=== PATIENT | male | born 1945 | race Caucasian/White ===

== ENCOUNTER 2022-07-24 13:21 | Emergency (ER) | payer BC, MEDICARE ==
[~2022-07-24] VITALS: Ht 175.3 cm; Wt 95.3 kg
[~2022-07-24 13:21] MED LIST: UNK MEDS
--- NOTE | 2022-07-24 14:53 | NUR ---
DR MUNOZ W/ PT
[2022-07-24] MEDS ORDERED: IBUP-1957 PO (15:28)
--- NOTE | 2022-07-24 17:31 | NUR ---
Patient discharged to home in stable condition. Written and verbal after care instructions given. Patient verbalizes understanding of instruction.
[2022-07-24 17:32] VITALS: BP 120/80
== END 2022-07-24 17:32 | disposition home or self-care (01) ==
LOC: ER 13:40
DX: M25.561 Pain in right knee (principal); M25.461 Effusion, right knee; R51.9 Headache, unspecified; I10 Essential (primary) hypertension; E11.9 Type 2 diabetes mellitus without complications; E78.00 Pure hypercholesterolemia, unspecified; Z90.89 Acquired absence of other organs; Z79.84 Long term (current) use of oral hypoglycemic drugs; W01.0XXA Fall on same level from slipping, tripping and stumbling without subsequent striking against object, initial encounter; Y93.89 Activity, other specified; Y92.89 Other specified places as the place of occurrence of the external cause; Y99.8 Other external cause status
CPT/HCPCS: 70450-TC; 72125-TC; 73502; 73564-TC

== ENCOUNTER 2022-07-30 10:33 | Inpatient (IN) | payer BC ==
[~2022-07-30] VITALS: Ht 170.2 cm; Wt 91.6 kg
[~2022-07-30 10:33] MED LIST changes: +IBUP-1957 PO
--- NOTE | 2022-07-30 10:53 | NUR ---
dr kennedy at bedside for eval.
[2022-07-30] MEDS ORDERED: LOSA25TA27 PO (11:22)
[2022-07-30] MEDS ORDERED: APIX5TAB PO (11:22)
[2022-07-30] MEDS ORDERED: FLUT1BLS6 INH (11:22)
[2022-07-30] MEDS ORDERED: EPLE25TA10 PO (11:22)
[2022-07-30] MEDS ORDERED: CARV3.122 PO (11:22)
[2022-07-30] MEDS ORDERED: METF-442 PO (11:22)
[2022-07-30] MEDS ORDERED: POTA10TA11 PO (11:22)
--- NOTE | 2022-07-30 12:00 | NUR ---
confectionery laboratory manager at bedside for blood draw.
[2022-07-30 12:07] LABS: BASOPHILS % (AUTO) 0.5 % (0.0-2.0); EOSINOPHILS % (AUTO) 0.9 % (0.0-6.0); HEMATOCRIT 30 % (39-51); HEMOGLOBIN 9.9 g/dL (13.5-17.5); LYMPHOCYTES # (AUTO) 1.2 K/uL (0.8-4.8); LYMPHOCYTES % (AUTO) 17.8 % (20.0-44.0); MEAN CORPUSCULAR HGB CONC 33 g/dl (31.0-36.0); MEAN CORPUSCULAR VOLUME 105 fL (80-96); MONOCYTES # (AUTO) 0.9 K/uL (0.1-1.30); MONOCYTES % (AUTO) 12.8 % (2.0-12.0); NEUTROPHILS # (AUTO) 4.7 K/uL (1.8-8.9); PLATELET COUNT (AUTO) 240 K/uL (150-450); RED BLOOD CELL COUNT(AUTO) 2.82 MIL/uL (4.5-6.0)
[2022-07-30 12:34] LABS: CALCIUM, SERUM 8.6 mg/dL (8.5-10.1); POTASSIUM 3.4 mmol/L (3.5-5.1)
--- NOTE | 2022-07-30 14:03 | NUR ---
[facility] CALLED COMMISSIONS COORDINATOR PAGED.
[2022-07-30] MEDS ORDERED: HYDROCODONE/APAP 5/325MG TABLET PO PRN (14:30)
[2022-07-30] MEDS ORDERED: ACETAMINOPHEN 325 MG TABLET PO PRN (14:30)
[2022-07-30] MEDS ORDERED: MAGNESIUM HYDROXIDE 30 ML UDC PO PRN (14:30)
[2022-07-30] MEDS ORDERED: TEMAZEPAM 15 MG CAPSULE PO PRN (14:30)
[2022-07-30] MEDS ORDERED: MAG HYDROX/AL HYDROX/SIMETH 30 ML UDC PO PRN (14:30)
[2022-07-30] MEDS ORDERED: Z GUARD REMEDY 4 OZ OINT TP PRN (14:30)
[2022-07-30] MEDS ORDERED: ONDANSETRON HCL/PF 4 MG/2 ML VIAL IVP PRN (14:30)
--- NOTE | 2022-07-30 16:34 | NUR ---
report given to sanju holcomb. patient awaiting transfer to floor.
--- NOTE | 2022-07-30 16:45 | NUR ---
CIGARETTE AND FILTER CHIEF INSPECTOR NOTE ADMIT 77 YEARS OLD MALE ADMIT AT ROOM 104 ON MED SURG MONITORING,ADMITTING DIAGNOSIS IS ACUTE WEAKNESS AND RIGHT KNEE PAIN,ALERT ORIENTED X4 VERBALLY RESPONSIVE ON ROOM AIR O2:100% SAFETY MEASURE IMPLEMENT BED IN LOW POSITION AND LOCKED,CALL LIGHT WITHIN REACH,HEAD OF THE BED ELEVATED CONTINUE TO MONITOR.
[2022-07-30 17:07] VITALS: BP 140/70
[2022-07-30] MEDS: CARVEDILOL 3.125 MG TABLET PO SCH (17:23)
[2022-07-30] MEDS: LOSARTAN POTASSIUM 25 MG TABLET PO SCH (17:23)
[2022-07-30] MEDS: APIXABAN 5 MG TABLET PO SCH (17:24)
--- NOTE | 2022-07-30 19:06 | NUR ---
RN NOTE PATIENT REMAINS ALERT ORIENTED X4 VERBALLY RESPONSIVE ON ROOM AIR,WILL ENDORSE NEXT COMING SHIFT FOR CONTINUATION OF CARE.
--- NOTE | 2022-07-30 20:03 | NUR ---
MS RN OPENING NOTES: RECEIVED PATIENT AWAKE IN BED, BED IN LOW POSITION CALL LIGHTS WITHIN REACH, NO COMPLAIN OF PAIN AND DISCOMFORT AT THIS TIME, ON ROOM AIR SATURATING WELL, PATIENT IS A/OX 4 ABLE TO MAKE NEEDS KNOWN, ON BED REST, IV LINE AT RAC# 20SL, PATIENT KEPT CLEAN AND DRY ALL NEEDS MET WILL CONTINUE TO MONITOR.
[2022-07-30 22:22] VITALS: BP 121/75
[2022-07-31 04:00] VITALS: BP 142/55
[2022-07-31 06:11] LABS: HEMATOCRIT 28 % (39-51); HEMOGLOBIN 9.7 g/dL (13.5-17.5); MEAN CORPUSCULAR HGB CONC 34 g/dl (31.0-36.0); MEAN CORPUSCULAR VOLUME 105 fL (80-96); RED BLOOD CELL COUNT(AUTO) 2.69 MIL/uL (4.5-6.0); WHITE BLOOD COUNT (AUTO) 7.3 K/uL (4.3-11.0)
[2022-07-31 06:12] LABS: BASOPHILS % (AUTO) 0.5 % (0.0-2.0); EOSINOPHILS % (AUTO) 1.1 % (0.0-6.0); LYMPHOCYTES # (AUTO) 1.8 K/uL (0.8-4.8); LYMPHOCYTES % (AUTO) 24.1 % (20.0-44.0); MONOCYTES % (AUTO) 13.4 % (2.0-12.0); NEUTROPHILS # (AUTO) 4.4 K/uL (1.8-8.9); NEUTROPHILS % (AUTO) 60.9 % (43.0-81.0); PLATELET COUNT (AUTO) 253 K/uL (150-450)
--- NOTE | 2022-07-31 06:29 | NUR ---
MS RN CLOSING NOTES: PATIENT SLEEP IN BED COMFORTABLY, AROUSABLE TO VERBAL STIMULI, BED IN LOW POSITION CALL LIGHTS WITHIN REACH, NO COMPLAIN OF PAIN AND DISCOMFORT AT THIS TIME, ON ROOM AIR SATURATING WELL, NO SOB WAS OBSERVED, PATIENT KEPT CLEAN AND DRY ALL NEEDS MET ENDORSE TO INCOMING SHIFT.
[2022-07-31 06:32] LABS: CALCIUM, SERUM 8.6 mg/dL (8.5-10.1); MAGNESIUM 2.1 mg/dL (1.8-2.4); PHOSPHORUS 2.9 mg/dL (2.5-4.9); POTASSIUM 3.7 mmol/L (3.5-5.1)
[2022-07-31 06:34] LABS: THYROID STIMULATING HORMONE 2.578 uIU/mL (0.358-3.74)
--- NOTE | 2022-07-31 07:30 | NUR ---
MS RN OPENING NOTES RECEIVED PATIENT ON BED AWAKE AND A/O X4. ON ROOM AIR TOLERATING WELL. NO SOB NOTED. NOT IN DISTRESS. WITH COMPLAINTS OF PAIN AT THE RIGHT KNEE AT THE SCALE OF 4/10. COMFORT MEASURES PROVIDED. WITH IV ACCESS AT THE RIGHT AC G20 SALINE LOCKED, PATENT AND INTACT. SAFETY MEASURES IN PLACED. CALL LIGHT WITHIN REACH. BED ON LOWEST LOCKED POSITION, SIDE RAILS UP X2. WILL CONTINUE TO MONITOR.
[2022-07-31] MEDS: CARVEDILOL 3.125 MG TABLET PO SCH ×2 (08:23→17:02)
[2022-07-31] MEDS: PANTOPRAZOLE 40 MG TABLET.DR PO SCH (08:23)
[2022-07-31] MEDS: POTASSIUM CHLORIDE 10 MEQ TABLET.SA PO SCH (08:23)
[2022-07-31] MEDS: METFORMIN 500 MG TABLET PO SCH ×2 (08:23→17:00)
[2022-07-31] MEDS: LOSARTAN POTASSIUM 25 MG TABLET PO SCH ×2 (08:23→17:01)
[2022-07-31] MEDS: APIXABAN 5 MG TABLET PO SCH ×2 (08:24→17:01)
[2022-07-31] MEDS: FLUTICASONE/VILANTEROL 1 EACH BLST.W.DEV IH SCH (08:25)
[2022-07-31] MEDS ORDERED: EPLERENONE 25 MG PO SCH (09:00)
[2022-07-31 12:00] VITALS: BP 140/75
--- NOTE | 2022-07-31 19:20 | NUR ---
noc rn note received patient in bed with eyes closed, easy to arouse. patient is [place] on both ears. no s/s of apparent distress in room air. pain tolerable at this time per patient. no IV fluids running at this time and access on rt. AC #20G. call light within reach, patient re-oriented and encouraged with the use of call light. safety in place, bed in lowest, locked position, siderails ups X2, and bed alarm on. will continue with the plan of care for patient.
--- NOTE | 2022-07-31 19:30 | NUR ---
MS RN CLOSING NOTES PATIENT ON BED RESTING AND A/O X4. ON ROOM AIR TOLERATING WELL. NO SOB NOTED. NOT IN DISTRESS. WITH COMPLAINTS OF PAIN AT THE RIGHT KNEE AT THE SCALE OF 4/10. COMFORT MEASURES PROVIDED. WITH IV ACCESS AT THE RIGHT AC G20 SALINE LOCKED, PATENT AND INTACT. DUE MEDS GIVEN. SAFETY MEASURES IN PLACED. CALL LIGHT WITHIN REACH. BED ON LOWEST LOCKED POSITION, SIDE RAILS UP X2. WILL ENDORSE TO NEXT SHIFT FOR LORI.
[2022-07-31 20:00] VITALS: BP 130/70
--- NOTE | 2022-07-31 20:13 | NUR ---
marti carrion rec Addendum: 07/31/22 at 2014 by LINA MCLEOD RN disregard
--- NOTE | 2022-08-01 00:30 | NUR ---
noc rn note patient noted rubbing rt knee and with facial grimacing, asked if he is in pain c/o 5/10 pain. given NOrco 5 as ordered PRN. will re-assess.
--- NOTE | 2022-08-01 01:25 | NUR ---
noc rn note not even an hour that norco was given, patient complaining that the medication made his pain worst and now asking for codeine. when I said that I'm going to have to report to the Doctor so they can order it inpatient, patient said "Don't tell the Doctor" and asking if someone else could put in the order, exclaiming "Jose! can't anyone else just put in the order!". on Further assessment, asked patient if he usually takes codeine at home. per patient and to quote "My takes some for her back" "The Doctor said I could take some for my Right knee". when asked how many mg the codeine he takes at home that his takes he said, "I don't know" "IT's usually the smal tablet". and per patient "Only one". reported incident to charge nurse.
--- NOTE | 2022-08-01 01:30 | NUR ---
noc nr note- pain re-assessment patient apologized at this time saying the pain is relieved.
[2022-08-01 04:00] VITALS: BP 132/62
--- NOTE | 2022-08-01 07:19 | NUR ---
noc rn closing note patient in bed asleep, patient took off his gown at this time no s/s of apparent distress in room air. pain managed with medication and heating pack. all needs attended. call light within reach. safety in place. Endorsed to SYL MATTSON for continuity of patient care.
[2022-08-01 08:00] VITALS: BP 142/63
[2022-08-01] MEDS: PANTOPRAZOLE 40 MG TABLET.DR PO SCH (08:03)
[2022-08-01] MEDS: METFORMIN 500 MG TABLET PO SCH ×2 (08:56→17:28)
[2022-08-01] MEDS: POTASSIUM CHLORIDE 10 MEQ TABLET.SA PO SCH (08:57)
[2022-08-01] MEDS: APIXABAN 5 MG TABLET PO SCH ×2 (08:59→17:29)
[2022-08-01] MEDS: CARVEDILOL 3.125 MG TABLET PO SCH ×2 (09:00→17:00)
[2022-08-01] MEDS: FLUTICASONE/VILANTEROL 1 EACH BLST.W.DEV IH SCH (09:00)
[2022-08-01] MEDS: LOSARTAN POTASSIUM 25 MG TABLET PO SCH ×2 (09:01→17:28)
[2022-08-01] MEDS: HYDROCODONE/APAP 10/325MG TABLET PO PRN ×2 (10:45→18:21)
[2022-08-01 16:00] VITALS: BP 122/60
--- NOTE | 2022-08-01 19:20 | NUR ---
pt is alert, oriented x 4, hard of hearing, he is take off gawn at all times and yelling, was not cooperative, anxious, he want turn of light, and closed the door, he was yelling when touch his any place of the body, he did not have dinner and he took pain medication 2 time today, took off gawn 3 times, given all medication, hold carvedirol 3.125mg d/t pulse was 58, and all v/s was ok no fever, call light within reach, lowest placement of bed, 3 side rails up, wheels locked, instructed fall precaution
--- NOTE | 2022-08-01 19:40 | NUR ---
MS RN OPENING NOTE RECEIVED PATIENT SLEEPING IN BED. PT A/O X4, ABLE TO VERBALIZE NEEDS. PT ON ROOM AIR, TOLERATING RA WELL. NO SOB NOTED. NO RESPIRATORY DISTRESS NOTED. NO COMPLAINTS OF PAIN AT THIS TIME. IV ACCESS TO RIGHT AC G20 SALINE LOCKED, IV PATENT AND INTACT. SAFETY MEASURES IN PLACED. CALL LIGHT WITHIN REACH. BED IN LOWEST LOCKED POSITION, SIDE RAILS UP X2. WILL CONTINUE TO MONITOR PT.
[2022-08-01 20:00] VITALS: BP 136/51
--- NOTE | 2022-08-01 22:10 | NUR ---
MS RN NOTE PT PULLED OUT HIS IV ACCESS. OFFERED PT TO START NEW IV. PT DECLINED. PT STATES THAT HE HAS HAD THE IV ACCESS FOR A FEW DAYS, AND IT HAS NEVER BEEN USED. SO HE REFUSES TO GET A NEW IV. CHARGE NURSE, AND AWARE.
--- NOTE | 2022-08-01 22:36 | NUR ---
MS RN NOTE PT IS UNABLE TO SLEEP. PT IS ADMINISTERED RESTORIL FOR INSOMNIA.
[2022-08-02 04:00] VITALS: BP 138/70
--- NOTE | 2022-08-02 06:55 | NUR ---
MS RN CLOSING NOTE LEFT PATIENT SLEEPING IN BED. PT A/O X4. ON ROOM AIR TOLERATING WELL. NO SOB NOTED. NOT IN DISTRESS. NO C/O PAIN AT THIS TIME. IV ACCESS TO RIGHT AC G20 SALINE LOCKED, PATENT AND INTACT. PT REFUSES TO BE CHANGED, AND FOR LINEN TO BE CHANGED ALSO. SAFETY MEASURES IN PLACE. CALL LIGHT WITHIN REACH. BED ON LOWEST LOCKED POSITION, SIDE RAILS UP X2. WILL ENDORSE TO NEXT SHIFT FOR LORI.
--- NOTE | 2022-08-02 07:26 | NUR ---
MS RN O NOTE RECEIVED PATIENT SLEEPING IN BED. PT A/O X4, ABLE TO VERBALIZE NEEDS. PT ON ROOM AIR, TOLERATING RA WELL. NO SOB NOTED. NO RESPIRATORY DISTRESS NOTED. NO COMPLAINTS OF PAIN AT THIS TIME.NO IV ACCESS . SAFETY MEASURES IN PLACED. CALL LIGHT WITHIN REACH. BED IN LOWEST LOCKED POSITION, SIDE RAILS UP X2. WILL CONTINUE TO MONITOR PT.
[2022-08-02] MEDS: LOSARTAN POTASSIUM 25 MG TABLET PO SCH ×2 (08:47→16:17)
[2022-08-02] MEDS: PANTOPRAZOLE 40 MG TABLET.DR PO SCH (08:47)
[2022-08-02] MEDS: METFORMIN 500 MG TABLET PO SCH ×2 (08:48→16:18)
[2022-08-02] MEDS: POTASSIUM CHLORIDE 10 MEQ TABLET.SA PO SCH (08:48)
[2022-08-02] MEDS: CARVEDILOL 3.125 MG TABLET PO SCH ×2 (08:48→16:17)
[2022-08-02] MEDS: APIXABAN 5 MG TABLET PO SCH ×2 (08:49→16:17)
[2022-08-02] MEDS: FLUTICASONE/VILANTEROL 1 EACH BLST.W.DEV IH SCH (08:50)
[2022-08-02 09:03] VITALS: BP 122/57
--- NOTE | 2022-08-02 10:07 | NUR ---
SPECIALIZED DEVELOPER NOTE FED PATIENT, KEEP CLEAN DRY , STRANGELY REFUSED TO INSERT IV HL, WILL LF\U
--- NOTE | 2022-08-02 11:54 | NUR ---
RN NOTE SEEN BY RENETTA AWARE THAT PATIENT REFUSED HL INSERTION
--- NOTE | 2022-08-02 13:10 | NUR ---
CREDENTIALING COORDINATOR NOTE SEEN BY DR HAMPTON ORTHOPEDIC NO NEW ORDER GIVEN AT THIS TIME
--- NOTE | 2022-08-02 15:20 | NUR ---
ms rn ote rounds made all needs attended, resting comfortably in bed ,no sob noted at this time
[2022-08-02 16:00] VITALS: BP 115/61
--- NOTE | 2022-08-02 18:37 | NUR ---
MS RN NO NOTE PATIENT SLEEPING IN BED. PT A/O X4, ABLE TO VERBALIZE NEEDS. PT ON ROOM AIR, TOLERATING RA WELL. NO SOB NOTED. NO RESPIRATORY DISTRESS NOTED. NO COMPLAINTS OF PAIN AT THIS TIME.NO IV ACCESS . SAFETY MEASURES IN PLACED. CALL LIGHT WITHIN REACH. BED IN LOWEST LOCKED POSITION, SIDE RAILS UP X2. WILL CONTINUE TO MONITOR PT.
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
[2022-08-02 20:00] VITALS: BP 125/51
[2022-08-03 04:00] VITALS: BP 139/73
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
--- NOTE | 2022-08-03 07:10 | NUR ---
ASSISTANT PROFESSOR OF BIOLOGY OPENING NOTES: RECEIVED PATIENT IN BED, AWAKE, ALERT, ORIENTED X 4. PATIENT IS HARD OF HEARING. NO RESPIRATORY DISTRESS NOTED, ON RA WITH OXYGEN SATURATION OF 97%. PATIENT HAS NO C/O PAIN OR DISCOMFORT AT THIS TIME BUT C/O BEING COLD, ADJUSTED PATIENT'S ROOM THERMOSTAT FOR PATIENT'S COMFORT. PATIENT HAS NO IV ACCESS AT THIS TIME AND STILL REFUSED TO HAVE IT ON AND SAID THAT HE'S GOING HOME ANYWAY. INFORMED PATIENT THAT HE DOES NOT HAVE A DISCHARGE ORDER YET. ALL SAFETY MEASURES IN PLACE. CALL LIGHT WITHIN REACH. BED LOCKED AND IN LOWEST POSITION WITH BED ALARM ON. SR UP X 2. WILL CONTINUE TO MONITOR PATIENT THROUGHOUT SHIFT.
[2022-08-03] MEDS: PANTOPRAZOLE 40 MG TABLET.DR PO SCH (07:33)
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
--- NOTE | 2022-08-03 08:16 | NUR ---
DR WELLINGTON NOTIFIED WITH NO FURTHER ORDERS AT THIS TIME BUT JUST TO KEEP PATIENT COMFORTABLE AND TO FOLLOW PREVIOUS PLANS FOR THE PATIENT. PATIENT WITH NO C/O AT THIS TIME AND SAID THAT HIS ROOM FEELS BETTER AT THIS TIME. WILL CONTINUE TO MONITOR PATIENT
[2022-08-03] MEDS: POTASSIUM CHLORIDE 10 MEQ TABLET.SA PO SCH (08:47)
[2022-08-03] MEDS: METFORMIN 500 MG TABLET PO SCH (08:47)
[2022-08-03 08:48] VITALS: BP 139/70
[2022-08-03] MEDS: CARVEDILOL 3.125 MG TABLET PO SCH (08:48)
[2022-08-03] MEDS: LOSARTAN POTASSIUM 25 MG TABLET PO SCH (08:48)
[2022-08-03] MEDS: APIXABAN 5 MG TABLET PO SCH (08:50)
[2022-08-03] MEDS: FLUTICASONE/VILANTEROL 1 EACH BLST.W.DEV IH SCH (09:04)
--- NOTE | 2022-08-03 10:16 | NUR ---
ROSINA PHYSICAL THERAPIST CAME BY AND TRIED TO WALK THE PATIENT BUT PATIENT WAS ONLY ABLE TO [place] ON HIS RIGHT LEG. PATIENT WAS PLACED BACK IN BED FOR SAFETY.
--- NOTE | 2022-08-03 10:46 | NUR ---
PATIENT'S JAMES CAME BY AND STARTED GETTING THE PATIENT'S BELONGINGS TOGETHER AND SAID THAT SHE'S TAKING THE PATIENT WITH HER. EXPLAINED TO THE AND THE PATIENT THAT THERE IS NO DISCHARGE ORDER FOR THE PATIENT YET BUT STILL INSISTED ON LEAVING. EXPLAINED TO BOTH THE PATIENT AND THE THE IMPORTANCE OF STAYING FOR FURTHER EVALUATION AND FOR PROPER PLACEMENT BUT PATIENT AND REFUSED. ALSO REFUSED ANY PAPERWORK TO BE GIVEN TO THEM AND JUST SIGNED THE AMA. EXPLAINED THE RISKS AND BENEFITS BUT DEMANDED TO LEAVE. CHARGE NURSE AND DR WELLINGTON BOTH NOTIFIED. ASSISTED PATIENT TO DRESS UP AND TOOK OFF THE PATIENT'S ARM BAND. PATENT DOES NOT HAVE IV ACCESS. BROUGHT PATIENT'S WHEELCHAIR AND TAKEN HIM OUTSIDE. NURSE ASKED THE IF THEY ARE GOING HOME AND SAID "IT'S NONE OF YOUR BUSINESS" PATIENT LEFT IN NO ACUTE DISTRESS
== END 2022-08-03 10:53 | disposition left against medical advice (07) | DRG 554 ==
LOC: ER 10:39 → MERGE 10:39 → MEDSG1 16:29
PROVIDERS: ADMIT Nurse Practitioner Acute Care; ATTEND Nurse Practitioner Acute Care
DX: M17.11 Unilateral primary osteoarthritis, right knee (principal); I42.9 Cardiomyopathy, unspecified; I50.22 Chronic systolic (congestive) heart failure; I48.20 Chronic atrial fibrillation, unspecified; I25.10 Atherosclerotic heart disease of native coronary artery without angina pectoris; D53.9 Nutritional anemia, unspecified; E11.9 Type 2 diabetes mellitus without complications; E66.9 Obesity, unspecified; E78.5 Hyperlipidemia, unspecified; I11.0 Hypertensive heart disease with heart failure; I48.0 Paroxysmal atrial fibrillation; J44.9 Chronic obstructive pulmonary disease, unspecified; Z79.01 Long term (current) use of anticoagulants; Z79.84 Long term (current) use of oral hypoglycemic drugs; Z79.899 Other long term (current) drug therapy; Z87.891 Personal history of nicotine dependence; Z95.1 Presence of aortocoronary bypass graft; Z68.31 Body mass index [BMI] 31.0-31.9, adult; Z91.81 History of falling; S83.281A Other tear of lateral meniscus, current injury, right knee, initial encounter; W19.XXXA Unspecified fall, initial encounter; Y93.9 Activity, unspecified; Y92.009 Unspecified place in unspecified non-institutional (private) residence as the place of occurrence of the external cause; R53.1 Weakness; M65.88 Other synovitis and tenosynovitis, other site; Z20.822 Contact with and (suspected) exposure to COVID-19
CPT/HCPCS: 36415; 71045-TC; 73564-TC; 73721-TC; 80048-TC; 83735-TC; 84100-TC; 84443-TC; 85025-TC; 87081-TC; 97112-TC; 97116-TC; 97530-TC; C9803; G0378